=== PATIENT | female | born 1970 | race Caucasian/White ===

== ENCOUNTER 2016-10-12 15:00 | Outpatient (RCR) | payer OTHER, BC ==
--- OUTSIDE RECORDS SUMMARY | 2016-08-24 07:55 | XMS REPORT | Continuity of Care Document ---
Author Author [facility] Organization [facility] Address Unknown Phone Unavailable Care Team Providers Care Unit Manager Rn Name Role Phone HUGH SHETTY MD PCP Insurance Providers Payer Name Policy Number Subscriber Name [id number] Joanne Taylor 17 Self / Same As Patient Advance Directives Directive Response Recorded Date/Time Advance Directives No 03/20/16 8:09am Health Care Power of Spline Rolling Machine Job Setter No 03/20/16 8:09am Organ Donor No 03/20/16 8:09am Resuscitation Status Full Code 03/20/16 8:09am Problems No problem information available. Medications Current Home Medications Medication Dose Units Route Directions Days/Qty Instructions Start Date Estradiol 1 Mg 1 Mg Oral Daily 08/06/14 [Hydrocodone Bit/Acetaminophen] 1 Tab 1-2 Tab Oral Every 4HRS as needed for Pain 08/21/14 Carisoprodol 350 Mg 350 Mg G Tube As Needed as needed for Spasms 50 Social History Social History Problem Response Recorded Date/Time Alcohol Use Occasionally Uses 08/20/2014 7:07pm Recreational Drug Use Yes 08/20/2014 7:07pm Recent Foreign Travel No 03/20/2016 8:10am Sexually Transmitted Disease CERVICAL CANCER 08/20/2014 7:07pm Hospital Discharge Instructions No hospital discharge instructions. Plan of Care Discharge Date 03/20/16 8:59am Instructions/Education Provided DR. MEYER-POST EPIDURAL INST Prescriptions See Medication Section Functional Status No functional status results. Allergies, Adverse Reactions, Alerts No known allergies. Immunizations Name Given Type Tetanus Booster (TDap) Less than 5yrs Historical Vital Signs Acute Vital Signs Vital Response Date/Time Temperature (Fahrenheit) 97.6 degrees F (97.6 - 99.5) 03/20/2016 8:14am Temperature (Calculated Celsius) 36.47232 degrees C (36.4 - 37.5) 03/20/2016 8:14am Temperature Source Tympanic 03/20/2016 8:14am Pulse Rate (adult) 69 bpm (60 - 90) 03/20/2016 8:58am Respiratory Rate 16 bpm (12 - 24) 03/20/2016 8:58am O2 Sat by Pulse Oximetry 92 % (88 - 100) 03/20/2016 8:58am Blood Pressure 116/55 mm Hg 03/20/2016 8:58am Blood Pressure Mean 73 mm Hg 03/20/2016 8:14am Pain Pain Intensity 6 03/20/2016 8:58am Height (Feet) 5 feet 03/20/2016 8:13am Height (Inches) 8.00 inches 03/20/2016 8:13am Height (Calculated Centimeters) 172.601267 cm 03/20/2016 8:13am Weight (Pounds) 129 pounds 03/20/2016 8:13am Weight (Ounces) 0.0 oz 03/20/2016 8:13am Weight (Calculated Grams) 18344.416 gm 03/20/2016 8:13am Weight (Calculated Kilograms) 58.447526 kilograms 03/20/2016 8:13am Calculated BMI 19.6 03/20/2016 8:13am Results No known relevant diagnostic tests, laboratory data and/or discharge summary. Procedures No known history of procedures. Encounters Encounter Location Arrival/Admit Date Discharge/Depart Date Attending Provider Departed Clinic [facility] 03/20/16 7:46am 03/20/16 8: 59am MATY MEYER MD Departed Clinic [facility] 03/02/16 12:27pm 03/02/16 1: 26pm MATY MEYER MD
[~2016-10-12 15:00] MED LIST: CRS350T GT; DULO20CA PO; ESTR1TAB24 PO; HYDR-3731 PO; HYDR-3820 PO; Hydrocodone Bit/Acetaminophen PO; VARE1TAB21
== END 2016-10-22 10:13 | disposition home or self-care (01) ==
PROVIDERS: ATTEND Podiatrist
DX: S92.011D Displaced fracture of body of right calcaneus, subsequent encounter for fracture with routine healing (principal); V43.6 Car passenger injured in collision with car, pick-up truck or van in traffic accident; Y99.8 Other external cause status

== ENCOUNTER → 2016-11-06 | Outpatient (CLI) | payer BC ==
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
--- NOTE | 2016-11-06 18:18 | Diagnostic Imaging Report ---
Bilateral screening mammogram. The current study was also evaluated with a Computer Aided Detection (CAD) system. INDICATION: Screening. No current complaints stated on the questionnaire. COMPARISON: 11/05/2015. FINDINGS: The breasts are composed of heterogeneously dense parenchyma which may decrease the mammographic sensitivity. No developing mass or suspicious calcifications. Allowing for technique and positional differences, no suspicious change is seen. IMPRESSION: No significant change. ACR BI-RADS Category 2: Benign findings. Result letter will be mailed to the patient. Note: At least 10% of breast cancer is not imaged by mammography. Dictated by: Dictated on workstation # [id number]
== END ==
LOC: RAD 07:20
PROVIDERS: ATTEND Obstetrics & Gynecology
DX: Z12.31 Encounter for screening mammogram for malignant neoplasm of breast (principal)
CPT/HCPCS: 77067

== ENCOUNTER → 2017-02-09 | Outpatient (CLI) | payer BC ==
--- NOTE | 2017-02-09 15:08 | Diagnostic Imaging Report ---
PROCEDURE: MRI lumbar spine. TECHNIQUE: Multiplanar, multisequence MRI of the lumbar spine was performed without contrast. INDICATION: Back pain. Bilateral leg pain and numbness. FINDINGS: There is grade 1 retrolisthesis of L4 over L5. The vertebral body heights are preserved. There is disc desiccation at multiple levels. There is moderate disc height loss at L4-L5. There is prominent bone marrow edema around endplates of L4-L5 disc. Endplate edema around T11-T12 endplates is also seen. There is also prominent bone marrow edema seen in the left pedicle of L5 with no obvious fracture line. This is also accompanied by bone marrow edema in the superior and inferior articular processes and is likely reactive to adjacent facet joint arthropathy. The spinal cord and cauda equina appear grossly unremarkable. T12-L1: There is a mild disc bulge and mild facet and ligamentous hypertrophy with no central canal, lateral recess, or foraminal stenosis. T12-L1: No disc herniation. There is mild facet hypertrophy. No central canal, lateral recess, or foraminal stenosis. L1-L2: No disc herniation. There is moderate facet hypertrophy. No central canal, lateral recess, or foraminal stenosis. L2-L3: There is a diffuse disc bulge and moderate/ severe facet hypertrophy. There is minimal central canal stenosis. The left lateral recess demonstrates mild stenosis. The right lateral recess is patent. The foramina demonstrate no significant stenosis. L3-L4: There is a diffuse disc bulge and moderate facet arthropathy. No central canal stenosis. There is mild right lateral recess stenosis. The left lateral recess is patent. The neural foramina demonstrate mild stenosis on the right and no significant stenosis on the left. L4-L5: There is a diffuse disc bulge and moderate facet hypertrophy. There is grade 1 retrolisthesis at this level. The central canal demonstrates minimal narrowing with AP dimension of 9.4 mm. There is bilateral lateral recess stenosis moderate on the left and mild/ moderate on the right abutting the descending L5 nerve roots. There is bilateral foraminal stenosis of mild/ moderate degree. L5-S1: There is a minimal disc bulge and mild facet hypertrophy with no central canal or lateral recess stenosis. There is bilateral foraminal stenosis severe on the left and moderate on the right side. IMPRESSION: 1. There is grade 1 retrolisthesis of L4 over L5 with associated disc and facet degenerative changes as above. 2. Bone marrow edema in the posterior elements of L5, most prominent in the left pedicle, perhaps secondary to adjacent facet joint arthropathy or possibly injury or stress related. No fracture line identified. Correlate clinically and with followup exams if needed. Dictated by: Dictated on workstation # [id number]
== END ==
LOC: RAD 12:59
PROVIDERS: ATTEND Orthopaedic Surgery Orthopaedic Surgery of the Spine
DX: M47.816 Spondylosis without myelopathy or radiculopathy, lumbar region (principal)
CPT/HCPCS: 72148

== ENCOUNTER 2017-06-12 09:50 | Emergency (ER) | payer BC ==
[~2017-06-12] VITALS: Ht 172.7 cm; Wt 68.0 kg
--- NOTE | 2017-06-12 10:27 | ED Lower Extremity ---
General Chief Complaint: Lower Extremity Stated Complaint: BACK OF LEGS BURNING Nursing Triage Note: PT REPORTS S/P BACK SX X 2 WEEKS. SHE STATES SHE HAD BEEN HAVING LOWER EXTREMITY PAIN, AND GIVEN MEDROL DOSE PACK. SHE STATES IT HAS HELPED WITH PAIN EXCEPT FOR BILAT CALVES. Nursing Sepsis Screen: No Definite Risk Source: patient Exam Limitations: no limitations History of Present Illness Time seen by provider: 10:13 Initial Comments Here with report of bilateral calf pain. Apparently had back surgery 2 weeks ago. At her follow-up she told her doctor that she is having pain that was radiating to her legs. They did believe that that was probably normal given the type of surgery and previous history and started her on a Medrol Dosepak. She has 2 more days of that yet. The upper leg pain is improved but she still has persistent bilateral calf pain. She did let him know about that and they instructed her to come to the ER for further evaluation. She was unsure of why but does believe it may be related to concerns of blood clots. Denies significant swelling or breathing problems. Denies other concerns. She is able to walk. Denies numbness between her legs or bowel or bladder incontinence. Onset: other (over the last week, changing over time.) Severity: mild, moderate Pain/Injury Location: bilateral leg Method of Injury: unknown Modifying Factors: Improves With Other (no seeming exacerbating or relieving factors.) Allergies and Home Medications Allergies Coded Allergies: No Known Drug Allergies (Verified , 12/07/07) Home Medications Duloxetine HCl 20 Mg Cap, 20 MG PO DAILY, (Reported) Estradiol 1 Mg Tablet, 1 MG PO DAILY, (Reported) Hydrocodone/Acetaminophen 1 Each Tablet, 1-2 EACH PO Q4H PRN for BACK PAIN, #30 Prescribed by: KENY LEYVA on 06/19/16 1749 Hydrocodone/Acetaminophen 1 Each Tablet, 1-2 EACH PO Q4H PRN for PAIN, #30 Prescribed by: KENY LEYVA on 06/19/16 1756 Varenicline Tartrate 1 Each Tab.ds.pk, #53 (Reported) Constitutional: see HPI, No chills, No fever Respiratory: no symptoms reported Cardiovascular: no symptoms reported Gastrointestinal: no symptoms reported Musculoskeletal: see HPI, muscle pain, muscle cramps Skin: no symptoms reported Psychiatric/Neurological: Numbness (intermittent to the legs but improved), Denies Weakness Past Ixidmxx-Kwpies-Kfcotj Hx Patient Social History Alcohol Use: Denies Use Recreational Drug Use: No Smoking Status: Former Smoker Type Used: Cigarettes Former Smoker, Quit: May 29, 2016 2nd Hand Smoke Exposure: No Recent Foreign Travel: No Contact w/Someone Who Travel: No Recent Infectious Disease Expo: No Recent Hopitalizations: No Physical Abuse: No Sexual Abuse: No Immunizations Up To Date Tetanus Booster (TDap): More than 5yrs Seasonal Allergies Seasonal Allergies: No Surgeries History of Surgeries: Yes (LEFT SHOUDLER ARTHROSCOPY, cervical fusion, carpal tunnel, BACK) Surgeries: Hysterectomy, Orthopedic Respiratory History of Respiratory Disorde: No Cardiovascular History of Cardiac Disorders: No Neurological History of Neurological Disord: No Reproductive System Hx Reproductive Disorders: Yes HIV/AIDS: No Female Reproductive Disorders: Denies BIOTECHNOLOGIST History: Hysterectomy Gastrointestinal History of Gastrointestinal Di: No Musculoskeletal History of Musculoskeletal Dis: Yes (RADICULOPATHY) Musculoskeletal Disorders: Degenerate Disk Disease Endocrine History of Endocrine Disorders: No Cancer History of Cancer: Yes Cancer: Cervical Psychosocial History of Psychiatric Problem: No Suicide Risk Score: 0 Integumentary History of Skin or Integumenta: Yes Skin/Integumentary Disorders: Eczema Blood Transfusions History of Blood Disorders: No Adverse Reaction to a Blood Tr: No Reviewed Nursing Assessment Reviewed/Agree w Nursing PMH: Yes Family Medical History Family Medial History: Coronary thrombosis G8 SISTER FH: leukemia 19 FATHER FH: lung cancer 19 MOTHER FH: lupus G8 SISTER Hypertension G8 SISTER Physical Exam Vital Signs Vital Sign - Last 12Hours 06/12/17 09:59 Temp 98.9 Pulse 75 Resp 18 B/P (MAP) 116/84 Pulse Ox 97 O2 Delivery Room Air Capillary Refill : Less Than 3 Seconds General Appearance: WD/WN, no apparent distress Cardiovascular: regular rate, rhythm, no murmur Respiratory: lungs clear, normal breath sounds Back: other (brace in place.) Legs: bilateral leg non-tender, bilateral leg normal inspection, bilateral leg normal range of motion Feet: bilateral foot non-tender, bilateral foot normal inspection, bilateral foot normal range of motion Neurologic/Psychiatric: alert, oriented x 3 Skin: normal color, warm/dry Comments Bilateral calves without significant swelling or tenderness on palpation Progress/Results/Core Measures Results/Orders My Orders Orders - RAMOS BAUER MD Us Venous Lower Ext [place] (06/12/17 10:21) Vital Signs/I&O Vital Sign - Last 12Hours 06/12/17 09:59 Temp 98.9 Pulse 75 Resp 18 B/P (MAP) 116/84 Pulse Ox 97 O2 Delivery Room Air Blood Pressure Mean: 95 Progress Note : Progress Note Seen and evaluated. Patient does not have symptoms of worsening spinal cord disease currently and retains feeling between her legs as well as strength of both legs. Due to recent history of surgery and persistent calf pain, it would be reasonable to rule out DVT. D-dimer would not be effective due to recent surgery so we will pursue ultrasound bilateral lower extremities to rule out DVT. 1150: Ultrasound negative. Discharged home with return precautions. Patient verbalize understanding instructions and agreement with plan. She was instructed to follow-up with her orthopedic surgeon as well as her primary care doctor. She is on gabapentin but has some dosing room which can be considered by PCP as indicated. Diagnostic Imaging Diagonstic Imaging: Ultrasound Plain Films/CT/US/NM/MRI: leg Comments NAME: JOANNE TAYLOR [facility] REC#: [id number] PT STATUS: REG ER : 1970 PHYSICIAN: RAMOS BAUER MD ADMIT DATE: 06/12/17/ER Signed Date of Exam: 06/12/17 US VENOUS LOWER EXT [place] Technique: Grayscale, pulsed and color Doppler imaging of the bilateral lower extremities. Comparison: None available. Indication: Bilateral lower shotty pain. Findings: The bilateral common femoral, femoral and popliteal veins are patent without evidence of DVT. Visualized proximal aspects of the greater saphenous, deep femoral, posterior tibial and peroneal veins are also patent. All of the evaluated deep venous structures demonstrate normal compressibility and waveform augmentation where applicable. Impression: No lower extremity deep venous thrombosis (DVT) in either lower extremity. Dictated by: Dictated on workstation # [id number] Dict: 06/12/17 1143 Trans: 06/12/17 1144 Interpreted by: MAYRA RODRIGUEZ MD Electronically signed by: MAYRA RODRIGUEZ MD 06/12/17 1144 Departure Impression Impression: Primary Impression: Bilateral leg pain Disposition: 01 HOME, SELF-CARE Condition: Stable Departure-Patient Inst. Decision time for Depature: 11:52 Referrals: HUGH BAR MD (PCP/Family) Primary Care Physician YOANDY MOSS MD Patient Instructions: Peripheral Neuropathy (DC) Add. Discharge Instructions: All discharge instructions reviewed with patient and/or family. Voiced understanding. Take medications as previously prescribed. Call Dr. MOSS on Wednesday for recheck and further evaluation. You may also discuss your concerns with Dr. Bar you may need dosing adjustments on your medicines as well. Return for worse pain, fever, vomiting, weakness, breathing problems, difficulties with walking or going to the bathroom or other concerns as needed. Copy Copies To 1: YOANDY MOSS MD Copies To 2: HUGH BAR MD, TIMOTHY D MD Jun 12, 2017 10:27
--- NOTE | 2017-06-12 11:47 | Diagnostic Imaging Report ---
Technique: Grayscale, pulsed and color Doppler imaging of the bilateral lower extremities. Comparison: None available. Indication: Bilateral lower shotty pain. Findings: The bilateral common femoral, femoral and popliteal veins are patent without evidence of DVT. Visualized proximal aspects of the greater saphenous, deep femoral, posterior tibial and peroneal veins are also patent. All of the evaluated deep venous structures demonstrate normal compressibility and waveform augmentation where applicable. Impression: No lower extremity deep venous thrombosis (DVT) in either lower extremity. Dictated by: Dictated on workstation # [id number]
[2017-06-12 12:23] VITALS: BP 116/84
== END 2017-06-12 12:23 | disposition home or self-care (01) ==
LOC: EDUNIT# 09:50 → ER 09:52
DX: M79.661 Pain in right lower leg (principal); M79.662 Pain in left lower leg; Z87.891 Personal history of nicotine dependence; Z98.1 Arthrodesis status; Z90.710 Acquired absence of both cervix and uterus; Z85.41 Personal history of malignant neoplasm of cervix uteri; Z80.1 Family history of malignant neoplasm of trachea, bronchus and lung; Z85.6 Personal history of leukemia; Z82.49 Family history of ischemic heart disease and other diseases of the circulatory system
CPT/HCPCS: 93970; 99283

== ENCOUNTER 2017-08-17 10:13 | Outpatient (RCR) | payer BC | END 2017-08-17 10:53 | disposition home or self-care (01) | PROVIDERS: ATTEND Orthopaedic Surgery Orthopaedic Surgery of the Spine | DX: Z98.1 Arthrodesis status (principal) ==

== ENCOUNTER → 2017-11-08 | Outpatient (CLI) | payer BC ==
--- NOTE | 2017-11-08 15:19 | Diagnostic Imaging Report ---
PROCEDURE: CT lumbar spine without contrast. TECHNIQUE: Multiple contiguous axial images were obtained through the lumbar spine without the use of intravenous contrast. Sagittal and coronal reformations were then performed. INDICATION: Low back pain. History of lumbar spine fusion. COMPARISON: MRI lumbar spine without and with IV contrast 08/14/2015. FINDINGS: There are 5 lumbar-type vertebral bodies. Normal alignment. Vertebral body heights are preserved. No acute fractures. Interval postoperative findings of bilateral yaneli and pedicle screw fixation with laminectomies, interbody fusion devices and anterior anchors at L4-S1. Hardware components are intact. No evidence of loosening. The spinal canal appears decompressed well at the postoperative levels. No evidence of spinal canal narrowing on this noncontrast exam. No high-grade osseous neuroforaminal narrowing. Mild scattered atherosclerotic calcifications. The visualized abdominal and pelvic contents are otherwise unremarkable. IMPRESSION: Interval postoperative findings of bilateral yaneli and pedicle screw fixation, laminectomies, interbody devices and anterior anchors at L4-S1. No evidence of hardware failure. No high-grade neural impingement is evident on this noncontrast exam. Dictated by: Dictated on workstation # [id number]
== END ==
LOC: RAD 14:06
PROVIDERS: ATTEND Physician Assistant
DX: Z09 Encounter for follow-up examination after completed treatment for conditions other than malignant neoplasm (principal); Z98.1 Arthrodesis status; Z98.890 Other specified postprocedural states
CPT/HCPCS: 72131

== ENCOUNTER → 2017-12-14 | Outpatient (CLI) | payer BC ==
--- NOTE | 2017-12-14 19:12 | Diagnostic Imaging Report ---
INDICATION: Routine screening. COMPARISON: Comparison is made with prior exams from 11/06/2016 and 11/05/2015. The current study was also evaluated with a Computer Aided Detection (CAD) system. FINDINGS: Scattered fibroglandular densities are noted bilaterally. The parenchymal pattern is stable. No mass or malignant appearing microcalcifications are seen. The axillae are unremarkable. IMPRESSION: No mammographic features suspicious for malignancy are identified. ACR BI-RADS Category 2: Benign findings. Result letter will be mailed to the patient. Note: At least 10% of breast cancer is not imaged by mammography. Dictated by: Dictated on workstation # [id number]
== END ==
LOC: RAD 07:51
PROVIDERS: ATTEND Obstetrics & Gynecology
DX: Z12.31 Encounter for screening mammogram for malignant neoplasm of breast (principal)
CPT/HCPCS: 77067

== ENCOUNTER 2018-01-13 08:07 | Outpatient (RCR) | payer BC | END 2018-01-13 11:25 | disposition home or self-care (01) | PROVIDERS: ATTEND Podiatrist | DX: Z47.89 Encounter for other orthopedic aftercare (principal); Z98.1 Arthrodesis status ==

== ENCOUNTER → 2018-04-06 | Outpatient (CLI) | payer BC ==
--- NOTE | 2018-04-06 09:39 | Diagnostic Imaging Report ---
PROCEDURE: CT right lower extremity without contrast. TECHNIQUE: An axially acquired CT was obtained through the right lower extremity without intravenous contrast. Coronal and sagittal reformations were also performed. INDICATION: Previous trauma, fractures and surgery. COMPARISON: 08/13/2017. FINDINGS: Revision of the previous surgical changes has occurred with multiple plate and screw removal. Parallel partially threaded screws transfix the subtalar joint. The posterior subtalar joint appears partially bridged but areas of lucency are persistent. Calcifications and/or soft tissue calcifications and/or loose bodies in the anterior and posterior subtalar joint are present. Chronic lucencies in the plantar aspect of the calcaneal body and tuberosity persist. No adverse development. Patchy bony demineralization and secondary arthritis are unchanged. IMPRESSION: Surgical revision with subtalar fusion and partial bony bridging at this time, incomplete at the posterior subtalar joint. Loose bodies and/or soft tissue calcifications in the anterior and posterior subtalar joint are present and may have increased. Chronic deformities to the calcaneal body are unchanged. No new osseous pathology or adverse development is apparent. Dictated by: Dictated on workstation # [id number]
== END ==
LOC: RAD 07:22
PROVIDERS: ATTEND Podiatrist
DX: Z47.89 Encounter for other orthopedic aftercare (principal); Z87.81 Personal history of (healed) traumatic fracture
CPT/HCPCS: 73700

== ENCOUNTER 2018-06-21 08:01 | Outpatient (RCR) | payer BC | END 2018-06-26 | disposition home or self-care (01) | PROVIDERS: ATTEND Orthopaedic Surgery | DX: M75.102 Unspecified rotator cuff tear or rupture of left shoulder, not specified as traumatic (principal) ==

== ENCOUNTER 2018-06-28 13:43 | Outpatient (RCR) | payer BC | END 2018-07-28 15:14 | disposition home or self-care (01) | PROVIDERS: ATTEND Orthopaedic Surgery | DX: M75.102 Unspecified rotator cuff tear or rupture of left shoulder, not specified as traumatic (principal) ==

== ENCOUNTER → 2018-12-15 | Outpatient (CLI) | payer BC ==
--- NOTE | 2018-12-15 18:52 | Diagnostic Imaging Report ---
INDICATION: Routine screening. Comparison is made with prior mammograms from 12/14/2017 and 11/06/2016. 2-D and 3-D bilateral screening mammography was performed with Computer-Aided Detection (CAD) system. FINDINGS: Scattered fibroglandular densities are identified bilaterally. The parenchymal pattern is stable. No mass or malignant-appearing microcalcifications are seen. The axillae are unremarkable. IMPRESSION: No mammographic features suspicious for malignancy are identified. ACR BI-RADS Category 1: Negative. Result letter will be mailed to the patient. Note: At least 10% of breast cancer is not imaged by mammography. Dictated by: Dictated on workstation # [id number]
== END ==
LOC: RAD 07:24
PROVIDERS: ATTEND Obstetrics & Gynecology
DX: Z12.31 Encounter for screening mammogram for malignant neoplasm of breast (principal)
CPT/HCPCS: 77067

== ENCOUNTER → 2019-07-17 | Outpatient (CLI) | payer BC ==
--- NOTE | 2019-07-17 15:35 | Diagnostic Imaging Report ---
PROCEDURE: MRI lumbar spine. TECHNIQUE: Multiplanar, multisequence MRI of the lumbar spine was performed without contrast. INDICATION: Low back pain. Patient underwent lumbar spine surgery 2 years ago. COMPARISON: Correlation is made with preoperative lumbar spine MRI from 02/09/2017. FINDINGS: Since prior study, patient has undergone lumbar spine surgery. There has been decompression laminectomy at the L4-5 level. There is posterior instrumented fusion with stabilization rods and pedicle screws extending from L4 through S1. There also appears to be anterior lumbar interbody fusion L4-L5 and L5-S1 levels. Hardware does create moderate artifact. The vertebral bodies show normal stature. No acute compression fracture is seen. No geographic marrow lesion is identified. There appear to be intervertebral devices at L4-L5 and L5-S1 levels. Remaining lumbar disc spaces demonstrate some narrowing and desiccation. The conus is unremarkable at the L1-L2 level. T12-L1: Central canal is widely patent. Neural foramina are patent. L1-L2: Central canal is widely patent. Neural foramina are patent. L2-L3: There is a large wide based midline/right paramidline disc bulge. This indents the ventral thecal sac and produces moderate canal stenosis. This also significantly narrows the right lateral recess. There is mild neural foraminal narrowing bilaterally. L3-L4: Annular bulging is seen. There is jyxw-at-ikdpthzw canal narrowing. There is ligamentous thickening. There is also moderate right and mild left lateral recess stenosis. There is moderate right neural foraminal stenosis. L4-L5: Central canal is widely patent. Neural foramina appear patent. L5-S1: Central canal and neural foramina appear to be patent. Paraspinous tissues are unremarkable. IMPRESSION: 1. Postoperative changes decompression laminectomy with posterior instrumented fusion L4-S1. There is also anterior lumbar interbody fusion L4-L5 and L5-S1 levels. 2. Multilevel lumbar spondylosis with multilevel central canal, lateral recess and neural foraminal stenosis described level by level above. There is a prominent wide based disc bulge midline/right paramidline L2-L3 level producing central canal as well as lateral recess stenosis. Dictated by: Dictated on workstation # [id number]
== END ==
LOC: RAD 14:16
PROVIDERS: ATTEND Orthopaedic Surgery Orthopaedic Surgery of the Spine
DX: M47.816 Spondylosis without myelopathy or radiculopathy, lumbar region (principal); M48.061 Spinal stenosis, lumbar region without neurogenic claudication
CPT/HCPCS: 72148

== ENCOUNTER 2019-08-22 05:32 | Outpatient (CLI) | payer BC ==
[~2019-08-22] VITALS: Ht 172 cm; Wt 77.2 kg
[2019-08-22] MEDS ORDERED: PRAV10TA PO (12:39)
[2019-08-22] MEDS ORDERED: TRAM50TA2 PO (12:39)
[2019-08-22] MEDS ORDERED: GABA-488 PO (12:39)
[2019-08-22] MEDS ORDERED: ESTR1TAB24 PO (12:39)
== END 2019-08-22 12:43 | disposition home or self-care (01) ==
LOC: PREOP 05:32
PROVIDERS: ATTEND Surgery
DX: Z01.818 Encounter for other preprocedural examination (principal)

== ENCOUNTER 2019-08-29 07:59 | Day surgery (SDC) | payer BC ==
[~2019-08-29] VITALS: Ht 170.2 cm; Wt 77.2 kg
[~2019-08-29 07:59] MED LIST changes: +GABA-488 PO; +PRAV10TA PO; +TRAM50TA2 PO
[2019-08-29] MEDS ORDERED: LACTATED RINGERS 1,000 ML IV ONE (08:04)
[2019-08-29 08:20] VITALS: BP 104/67
[2019-08-29] MEDS ORDERED: LACTATED RINGERS 1,000 ML IV STA (08:21)
[2019-08-29] MEDS ORDERED: MIDAZOLAM 2 MG/2 ML (VERSED) VIAL ONE (08:28)
[2019-08-29] MEDS ORDERED: PROPOFOL INJECTION 50 ML IV ONE ×2 (08:28→09:24)
[2019-08-29 09:40] VITALS: BP 83/50
--- NOTE | 2019-08-29 09:42 | Progress Note-Post Operative ---
Post-Operative Progess Note Surgeon (s)/Print And Pattern Designer (s) Surgeon DEE AGUILAR DO Print And Pattern Designer: na Pre-Operative Diagnosis screening colonoscopy Post-Operative Diagnosis normal colon Procedure & Operative Findings Date of Procedure 08/29/19 Procedure Performed/Findings colonoscopy Anesthesia Type per generator technician Estimated Blood Loss Estimated blood loss (mL): none Specimens/Packing Specimens Removed none DEE AGUILAR DO Aug 29, 2019 09:42 POS
--- NOTE | 2019-08-29 09:43 | Discharge Inst-Simple/Standard ---
Discharge Inst-Standard Patient Instructions/Follow Up Plan of Care/Instructions/FU: repeat colonoscopy in 10 years unless family history of colon cancer then 5 years. Any issues before that, be seen at that time. Activity as Tolerated: Yes Discharge Diet: Regular Diet DEE AGUILAR DO Aug 29, 2019 09:43 POS
[2019-08-29 09:45] VITALS: BP 89/59
[2019-08-29 09:50] VITALS: BP 97/65
[2019-08-29 09:55] VITALS: BP 97/65
[2019-08-29 10:17] VITALS: BP 103/72
--- NOTE | 2019-08-29 15:23 | OPERATIVE REPORT ---
DATE OF SERVICE: 08/29/2019 PREOPERATIVE DIAGNOSIS: Screening colonoscopy. POSTOPERATIVE DIAGNOSIS: Normal colon. PROCEDURE: Colonoscopy. ANESTHESIA: Per SAWMILLING OPERATOR. ESTIMATED BLOOD LOSS: None. COMPLICATIONS: None. INDICATIONS: The patient is a 49-year-old female with need for screening colonoscopy. She understands risks and benefits of procedure and wished to proceed with procedure. Consent was signed in the chart. DESCRIPTION OF PROCEDURE: The patient was taken to the endoscopy suite, placed in left lateral recumbent position. Timeout was performed. Digital rectal exam was performed. There were no palpable polyps, masses or ulcerations. Scope was inserted in the rectum, advanced all the way to the cecum with minimal difficulty. Prep was adequate. Scope was then slowly retracted back. There were no polyps, masses or ulcerations in the cecum, ascending, transverse, descending and sigmoid colon. Once in the rectum, scope was retroflexed noting no other pathology. Scope was returned to its normal position, slowly withdrawn until completely removed. The patient tolerated procedure well without any complications. She was taken to recovery room in stable condition. RECOMMENDATIONS: The patient will need repeat colonoscopy in 10 years unless family history of colon cancer, which will then be 5 years. Any issues before that will be seen at that time. Job ID: [id number] DocumentID: [id number] Dictated Date: 08/29/2019 09:42:02 Caramel Candy Maker Date: 08/29/2019 15:22:05 Dictated By: DEE AGUILAR DO
--- NOTE | 2019-08-31 14:59 | Anesthesia-General Post-Op ---
MAC Patient Condition Mental Status/LOC: Same as Preop Cardiovascular: Satisfactory Nausea/Vomiting: Absent Respiratory: Satisfactory Pain: Controlled Complications: Absent Post Op Complications Complications None Follow Up Care/Instructions Patient Instructions None needed. Anesthesiology Discharge Order Discharge Order late entry 08/29/19 at 1140: Patient is doing well, no complaints, stable vital signs, no apparent adverse anesthesia problems. No complications reported per nursing. QUIN WALL CRNA Aug 31, 2019 14:59 POS
== END 2019-08-29 10:25 ==
LOC: ENDO 07:59
PROVIDERS: ATTEND Surgery
DX: Z12.11 Encounter for screening for malignant neoplasm of colon (principal); E78.5 Hyperlipidemia, unspecified; M19.90 Unspecified osteoarthritis, unspecified site; F41.9 Anxiety disorder, unspecified; Z79.899 Other long term (current) drug therapy; Z90.710 Acquired absence of both cervix and uterus; Z87.891 Personal history of nicotine dependence

== ENCOUNTER 2020-09-23 14:14 | Outpatient (RCR) | payer BC ==
[~2020-09-23 14:14] MED LIST changes: +ACHYD1T PO; -HYDR-3820 PO; -TRAM50TA2 PO; +TRM50T PO
== END 2020-11-08 09:44 | disposition home or self-care (01) ==
PROVIDERS: ATTEND Pain Medicine Interventional Pain Medicine
DX: M54.10 Radiculopathy, site unspecified (principal)

== ENCOUNTER → 2020-10-08 | Outpatient (CLI) | payer BC ==
--- NOTE | 2020-10-08 09:50 | Diagnostic Imaging Report ---
CLINICAL INDICATION: Patient low back pain, right leg pain and pain from walking. EXAM: Axial CT scan of the lumbar spine performed without IV contrast with sagittal and coronal reformatted images. Auto Exposure Controls were utilized during the CT exam to meet ALARA standards for radiation dose reduction. COMPARISON: CT scan of the lumbar spine without contrast dated 11/08/2017. FINDINGS: Again seen postoperative changes to the lumbar spine with L4-S1 posterior lumbar interbody fusion with bilateral spinal rods and screws. Interbody metallic disc spacers are seen at the L4-L5 and L5-S1 levels. There is interval progression of solid bony bridging/fusion at the L4-S1 levels. There are L5 laminectomies and partial resection of the posterior elements of the L4 vertebra. Left L5 facetectomy changes are again noted. There is no evidence of osteolysis or hardware fracture. There are supporting anterior fusion screws involving the L4 and S1 levels anteriorly. There is no acute lumbar spine fracture. There is mild levoscoliosis of the lumbar spine. There are degenerative spurs seen throughout the lumbar spine which has slightly progressed. There is no significant paraspinal soft tissue abnormality. T12-L1: Unremarkable. L1-L2: Unremarkable. L2-L3: There is interval progression of diffuse disc bulge with moderate to severe loss of disc space height with vacuum disc changes. There is mild facet arthropathy. There appears to be at least mild central canal narrowing, inup-qo-czbzbeqc right neural foramen narrowing and gjoz-mn-ifjbayxr left neural foramen narrowing which has slightly progressed. L3-L4: Again noted mild diffuse disc bulge and bilateral facet arthropathy. There is moderate right neural foramen narrowing and mild left neural foramen narrowing which has not significantly changed. L4-L5 and L5-S1 levels: There is hardware artifact which obscures portions of the L4-S1 levels. The susceptibility hardware artifact significantly degrades evaluation of the L4-S1 levels. There is at least mild bilateral L4-L5 bony neural foramen narrowing which has not significantly changed. There is bupg-yg-cgygyovx left bony neural foramen narrowing which has not significantly changed. L4-L5 and L5-S1 levels. There is no significant central canal stenosis. IMPRESSION: 1: There is L4 through S1 posterior lumbar interbody fusion with progression of solid bony bridging/fusion. There is no hardware complication seen. 2: There is slight progression of degenerative disc disease at the L2-L3 level, as described above. Otherwise, the remainder of the lumbar spine has not significantly changed in interim. Dictated by: Dictated on workstation # [id number]
--- NOTE | 2020-10-08 10:41 | Diagnostic Imaging Report ---
PROCEDURE: MRI lumbar spine. TECHNIQUE: Multiplanar, multisequence MRI of the lumbar spine was performed without contrast. INDICATION: Back pain. The previous MRI lumbar spine exam of 07/17/2019 noted postoperative changes consistent with decompression laminectomy and fusion from L4 through S1. There is also an interbody device in place at the L4-L5 level. On this exam those postsurgical changes are again visualized and stable. There is still no evidence for spinal stenosis or nerve root encroachment at the fused levels. The previous study also noted flattening of the ventral aspect of the thecal sac at the L3-L4 level with moderate right and mild left lateral recess stenosis. Those findings are again evident and no different. The prior exam also identified a broad-based disc bulge to the right at L2-L3. This indented the ventral aspect of thecal sac resulting in moderate central stenosis. There is also narrowing of the neural foramen on the right at this level. Those findings are again evident and do not appear to have progressed. There is still no evidence for spinal stenosis or nerve root encroachment at the L1-L2 level. There is no abnormal signal arising from the cord or the vertebral bodies to indicate an acute abnormality. There is no sign of a paraspinal mass. IMPRESSION: 1. There are postsurgical changes consistent with a fusion of L4-S1. The orthopedic hardware seems to be in good position and there is still no evidence for spinal stenosis or any significant neural foraminal narrowing. 2. The degenerative disc and bony disease at the L2-L3 and L3-L4 levels noted on the prior exam has not progressed. 3. No new area of spinal stenosis or nerve root encroachment has developed. 4. There is no sign of an acute bony abnormality or of a cord lesion. Dictated by: Dictated on workstation # [id number]
== END ==
LOC: RAD 08:32
PROVIDERS: ATTEND Physician Assistant
DX: M51.16 Intervertebral disc disorders with radiculopathy, lumbar region (principal); M48.061 Spinal stenosis, lumbar region without neurogenic claudication; G89.18 Other acute postprocedural pain; M43.27 Fusion of spine, lumbosacral region; Z98.890 Other specified postprocedural states
CPT/HCPCS: 72131; 72148

== ENCOUNTER → 2020-11-18 | Outpatient (CLI) | payer BC ==
--- NOTE | 2020-11-18 15:07 | Diagnostic Imaging Report ---
CLINICAL INDICATION: Patient has chronic spine pain with history of C-spine and L-spine surgery. EXAM: MRI of the cervical spine performed without IV contrast. Sequences include sagittal T1, sagittal T2, sagittal T2 fat-sat, and axial T2. COMPARISON: CT scan of the cervical spine without contrast dated 02/25/2015. FINDINGS: Again seen postop changes with C5 through C7 anterior cervical disc fusion. There is solid bony bridging/fusion seen at the C5-C6 level. Unknown if there is solid bony bridging/fusion at C6-C7 level, as there was none seen on the prior study as well. There is no significant paraspinal fluid collection. Limited visualization of posterior fossa and cervical spinal cord shows no significant abnormality. There is Modic type I degenerative signal changes involving the C4-C5 endplates. There is no significant paraspinal soft tissue abnormality. C1-C2: There are degenerative spurs involving the atlantoodontoid interval anteriorly. There is no significant central canal stenosis. C2-C3: There is mild bilateral facet arthropathy. There is no significant central spinal canal or neural foramen narrowing. C3-C4: There is mild bilateral facet arthropathy. There is no significant change to the mild bilateral neural foramen narrowing. There is minimal central canal narrowing again noted. C4-C5: There is a mild diffuse disc bulge with mild central canal narrowing and mild bilateral facet arthropathy. Stable mild bilateral neural foramen narrowing. C5-C6: Again noted mild bony central canal narrowing. There is at least moderate right neural foramen narrowing which is stable. There is at least moderate left neural foramen narrowing which appears to have progressed. C6-C7: There is posterior vertebral spurs and minimal ligamentum flavum buckling. There is at least moderate central canal stenosis, severe left neural foramen narrowing and moderate right neural foramen narrowing which was also noted on the prior study. C7-T1: There is iujc-zl-maszusbz left neural foramen narrowing and no significant right neural foramen narrowing which has progressed in the left. There is no significant central canal stenosis. IMPRESSION: 1: Again seen C5 through C7 anterior cervical disc fusion hardware. There is solid bony bridging/fusion again seen at the C5-C6 level. Unknown if there is solid bony bridging/fusion at C6-C7 level. If necessary, CT scan better evaluate. 2: There is multilevel cervical spine degenerative disease again noted which is worse at the C4-C5 and C6-C7 level which is not majorly changed in interim as visualized. 3: There is at least moderate central canal stenosis at the C5-C6 level. Dictated by: Dictated on workstation # [id number]
--- NOTE | 2020-11-18 16:35 | Diagnostic Imaging Report ---
CLINICAL INDICATION: Patient with chronic spine pain. Patient has history of previous cervical and lumbar spine surgeries. EXAM: MRI of the thoracic spine performed without IV contrast. Sequences include sagittal T1, sagittal T2, sagittal stir, and axial T2. COMPARISON: X-ray of the thoracic spine dated 03/26/2008. FINDINGS: Thoracic spine has normal alignment with no fracture or dislocation. There is no abnormal paraspinal soft tissue signal or abnormality. The thoracic spinal cord has normal anatomic appearance with no abnormal cord signal. There is small amount of Modic type II degenerative signal changes anteriorly at the T11-T12 level. There is minimal Modic type I degenerative signal changes anteriorly at the T9-T10 level. Otherwise, the thoracic vertebra have normal signal characteristics. The intervertebral disk heights are well-preserved. There are mildly hypertrophic spurs anteriorly throughout the thoracic spine and facet arthropathy. There is no significant central spinal canal or neural foramen narrowing. IMPRESSION: Mild thoracic spine degenerative disease with no significant central spinal canal or neural foramen narrowing. Dictated by: Dictated on workstation # [id number]
== END ==
LOC: RAD 13:36
PROVIDERS: ATTEND Orthopaedic Surgery Orthopaedic Surgery of the Spine
DX: Z01.818 Encounter for other preprocedural examination (principal); M47.812 Spondylosis without myelopathy or radiculopathy, cervical region; M47.814 Spondylosis without myelopathy or radiculopathy, thoracic region; M48.02 Spinal stenosis, cervical region; M43.22 Fusion of spine, cervical region
CPT/HCPCS: 72141; 72146

== ENCOUNTER → 2021-08-28 | Outpatient (CLI) | payer BC ==
--- NOTE | 2021-08-28 11:20 | Diagnostic Imaging Report ---
INDICATION: Routine screening. COMPARISON is made with prior mammograms of 12/15/2018 and 12/14/2017. 2-D and 3-D bilateral screening mammography was performed with CAD. Scattered fibroglandular densities are identified bilaterally. The parenchymal pattern is stable. No mass or malignant-appearing microcalcifications are seen. Axillae are unremarkable. IMPRESSION: BI-RADS Category 1 No mammographic features suspicious for malignancy are identified. ACR BI-RADS Category 1: Negative. Result letter will be mailed to the patient. Note: At least 10% of breast cancer is not imaged by mammography. Dictated by: Dictated on workstation # [id number]
== END ==
LOC: RAD 07:30
PROVIDERS: ATTEND Obstetrics & Gynecology
DX: Z12.31 Encounter for screening mammogram for malignant neoplasm of breast (principal)
CPT/HCPCS: 77063; 77067

== ENCOUNTER → 2023-08-04 | Outpatient (CLI) | payer BC ==
--- NOTE | 2023-08-04 10:24 | Diagnostic Imaging Report ---
INDICATION: Routine screening. COMPARISON: 08/28/2021 and 12/15/2018. TECHNIQUE: 2D and 3D bilateral screening mammography was performed with CAD. FINDINGS: Scattered fibroglandular densities are identified bilaterally. The overall parenchymal pattern is stable. No mass or malignant-appearing microcalcifications are identified. The axillae are unremarkable. IMPRESSION: No mammographic features suspicious for malignancy are identified. ACR BI-RADS Category 1: Negative. Result letter will be mailed to the patient. Note: At least 10% of breast cancer is not imaged by mammography. Dictated by: Dictated on workstation # [id number]
== END ==
LOC: RAD 07:17
PROVIDERS: ATTEND Family Medicine
DX: Z12.31 Encounter for screening mammogram for malignant neoplasm of breast (principal)
CPT/HCPCS: 77063; 77067